=== PATIENT | female | born 2005 | race Caucasian/White ===

== ENCOUNTER 2024-07-28 14:07 | Outpatient (CLI) | payer OTHER, SELFPAY ==
--- NOTE | 2024-07-28 14:19 | XR_ITS ---
WS: [id number] Cervical spine, AP, AP odontoid, lateral views in flexion, extension and neutral position, 07/28/2024 Clinical Data: NUMBNESS AND TINGLING, RIGHT ARM Comparison: None. Findings: No compression fractures are seen. The disc heights are normal. There is no prevertebral so ft tissue swelling. The odontoid is unremarkable. The soft tissues of the neck and the lung apices ar e normal. On flexion and extension there is no instability. XR/XR cervical spine 4-5V [id number] Impression: 1. Negative cervical spine. 2. No instability on flexion or extension.
--- NOTE | 2024-07-28 14:19 | XR_ITS ---
WS: [id number] Right hip, AP and frog-leg views, 07/28/2024 Clinical Data: RIGHT HIP JOINT PAIN Comparison: None. Findings: No fractures or dislocations are seen. The right hip shows no erosion, sclerosis, narrowing, loss of normal spherical shape of femoral head or fragmentation of the right femoral head.. The soft tissues are not remarkable. The adjacent pelvis is normal. XR/XR hip RT 2-3V wo/w pel* [id number] Impression: Negative right hip. Tonnis classification: grade 0: normal radiographs
== END 2024-07-28 14:08 | disposition home or self-care (01) ==
LOC: RAD 14:14
PROVIDERS: PCP Family Medicine; Visit Provider Family Medicine
DX: R20.2 Paresthesia of skin (principal); M25.551 Pain in right hip
CPT/HCPCS: 72050; 73502